=== PATIENT | female | born 1985 | race African-American/Black ===

== ENCOUNTER 2018-01-09 18:33 | Emergency (ER) | payer MEDICAID ==
[~2018-01-09] VITALS: Ht 167.6 cm; Wt 67.6 kg
--- NOTE | 2018-01-09 19:09 | NUR ---
Female industrial illuminating engineer accompanied female patient for(Dr morales ).
--- NOTE | 2018-01-09 19:14 | NUR ---
Handsoff report given to James ROBLES.
--- NOTE | 2018-01-09 19:23 | NUR ---
Patient discharged to home in stable conditon. Written and verbal after care instructions given. Patient verbalizes understanding of instructions. patient left with stable gait.
[2018-01-09 19:26] VITALS: BP 125/78
== END 2018-01-09 19:26 | disposition home or self-care (01) ==
LOC: ER 18:33
DX: L24.9 Irritant contact dermatitis, unspecified cause (principal); N76.0 Acute vaginitis; Z91.040 Latex allergy status
CPT/HCPCS: 87210; 99283; A4663

== ENCOUNTER 2018-12-21 13:54 | Emergency (ER) | payer MEDICAID, OTHER ==
[~2018-12-21] VITALS: Ht 167.6 cm; Wt 68.0 kg
[2018-12-21] MEDS ORDERED: IBUPROFEN 600 MG TABLET PO ONE (14:30)
--- NOTE | 2018-12-21 14:30 | NUR ---
Patient discharged to home in stable conditon & brisk steady gait. Written and verbal after care instructions given to patient. Patient verbalizes understanding of instructions.
[2018-12-21] MEDS ORDERED: IBUPROFEN 600 MG TABLET ONE (14:31)
== END 2018-12-21 14:33 | disposition home or self-care (01) ==
LOC: ER 13:54
DX: S46.212A Strain of muscle, fascia and tendon of other parts of biceps, left arm, initial encounter (principal); Z91.040 Latex allergy status; X50.1XXA Overexertion from prolonged static or awkward postures, initial encounter; Y93.89 Activity, other specified; Y92.89 Other specified places as the place of occurrence of the external cause; Y99.8 Other external cause status
CPT/HCPCS: A4663

== ENCOUNTER 2022-03-12 17:30 | Emergency (ER) | payer OTHER ==
[~2022-03-12] VITALS: Ht 167.6 cm; Wt 73.5 kg
--- NOTE | 2022-03-12 17:50 | NUR ---
SWAB SPECIMEN FOR RAPID INFLUENZA SENT TO LAB.
[2022-03-12] MEDS ORDERED: GUAI-671 PO (17:51)
--- NOTE | 2022-03-12 18:09 | NUR ---
DISCHARGE INSTRUCTIONS GOVEN PER MD ORDER.
[2022-03-12 18:10] VITALS: BP 139/72
== END 2022-03-12 18:10 | disposition home or self-care (01) ==
LOC: ER 17:49
DX: J06.9 Acute upper respiratory infection, unspecified (principal); Z80.3 Family history of malignant neoplasm of breast; Z91.040 Latex allergy status
CPT/HCPCS: 87400; A4663